=== PATIENT | male | born 1965 | race Caucasian/White ===

== ENCOUNTER 2023-03-10 10:59 | Emergency (ER) | payer OTHER, SELFPAY ==
[2023-03-10 10:59] VITALS: BP 150/84; PULSE 97; RESP 18; TEMP 36; O2SAT 100; BMI 45.7
--- NOTE | 2023-03-10 11:19 | CT_ITS ---
STUDY: CT ABDOMEN AND PELVIS WITH CONTRAST REASON FOR EXAM: Male, 57 years old. Perianal pain, possible abscess RADIATION DOSAGE (If Supplied By Facility): CTDIvol = ( 29.89 ) mGy, DLP = ( 1597.82 ) mGycm TECHNIQUE: Transaxial images were obtained from the dome of the diaphragm to the symphysis pubis without oral contrast. IV 100mL Isovue-300 was administered. Sagittal and coronal images were reconstructed. Individualized dose optimization techniques were used for this CT. COMPARISON: None. FINDINGS: The visualized lung bases are unremarkable. The visualized portions of the heart are within normal limits. Liver is unremarkable aside from a subcentimeter cyst in the left lobe. Normal gallbladder and extrahepatic biliary system. Normal spleen. Normal pancreas. Normal bilateral adrenal glands. Normal right kidney. Normal left kidney. Normal visualized stomach. Normal small intestine. Scattered colonic diverticulosis, no CT evidence of acute diverticulitis. The appendix is visualized and appears normal. Appendix seen on coronal recon images 92 through 96 Normal abdominal aorta. Normal inferior vena cava. Normal retroperitoneum. Normal urinary bladder. There is a low-density fluid collection in the perirectal region best seen on axial image 126 and coronal reconstructed image 34 consistent with abscess. It measures 3.33 x 1.85 x 2.31 cm. No evidence of an air-fluid level there is a minimal amount of associated induration of the perirectal fat. There is a small umbilical hernia containing fat. Bony structures are unremarkable aside from degenerative changes at L5/S1 with partially calcified disc bulge. CT/Abdomen/Pelvis W IV Cont ONLY IMPRESSION: There is a 3.33 x 1.85 x 2.31 centimeter low-density fluid collection in the perirectal region consistent with abscess. Surgical consultation recommended. There is a minimal amount of associated induration of the perirectal fat. No suspicious solid organ abnormality, simple hepatic cyst, no specific follow-up needed Diverticulosis, no CT evidence of acute diverticulitis Electronically Signed: Chris Swift MD at 12:28 EDT ,
--- NOTE | 2023-03-10 11:24 | EDS_ITS ---
HPI <TYLOR Mendoza - Last Filed: 03/10/23 15:51> History of Present Illness Chief Complaint: Other, Pain/Inj Narrative Narrative: Patient presenting with progressively worsening rectal pain that he has had since Saturday. He describes the pain as sharp and shooting. On Saturday he saw his PCP who diagnosed him with a hemorrhoid and put him on Preparation H. He has been using that, sitz bath's, rectal suppositories, stool softeners with no relief. He states that the pain has become, unbearable and was told to come in today by his PCP. He denies any fever, chills, abdominal pain, constipation, rectal bleeding/blood in the stool, nausea, and vomiting. PMH includes hypertension, hyperlipidemia. PFSH <TYLOR Mendoza - Last Filed: 03/10/23 15:51> PFSH Medical History (Updated 03/10/23 @ 13:12 by TYLOR Mendoza) Coronary artery disease High cholesterol Hypertension Home Medications ciprofloxacin HCl 500 mg tablet 500 mg PO BID 10 days #20 TABLETS 03/10/23 [Rx Last Taken Unknown] metronidazole 500 mg tablet 500 mg PO Q8H 10 days #30 tabs 03/10/23 [Rx Last Taken Unknown] oxycodone-acetaminophen 5 mg-325 mg tablet (Percocet) 1 tab PO Q8H PRN pain 4 days #10 tabs 03/10/23 [Rx Last Taken Unknown] Allergy/AdvReac Type Severity Reaction Status Date / Time No Known Allergies Allergy Verified 03/10/23 11:01 Social History Smoking Status: Never smoker ROS <TYLOR Mendoza - Last Filed: 03/10/23 15:51> ROS ED Constitutional Constitutional ED: Denies chills, fever(s) or sweats Cardiovascular Cardiovascular: Denies chest pain Respiratory/Chest Respiratory/Chest: Denies cough or dyspnea Gastrointestinal Gastrointestinal: Denies abdominal pain, constipation, melena, nausea or vomiting Musculoskeletal Musculoskeletal: Denies arthralgias or myalgias Integumentary Denies abscess, Abrasions or rash Neurologic Neurologic: Denies weakness EXAM <TYLOR Mendoza - Last Filed: 03/10/23 15:51> Physical Exam Const Vital Signs: 03/10/23 10:59 03/10/23 11:58 03/10/23 14:31 Temperature 96.8 F L Temperature Source Temporal Pulse Rate 97 93 73 Respiratory Rate 18 18 16 Blood Pressure 150/84 H 148/82 H 138/90 H Blood Pressure Mean 106 104 Pulse Ox 100 99 98 Oxygen Delivery Method Room Air Room Air Positive well nourished, well developed and no apparent distress General Appearance ED: well developed HEENT Reports normocephalic and head/scalp atraumatic Mouth ED: Yes moist mucous membranes normal Eyes PERRL and EOMs intact bilaterally Neck full ROM and supple Chest Wall inspection of chest normal Resp normal respiratory effort and clear to auscultation bilaterally Cardio regular rate and regular rhythm GI soft to palpation, non-tender, non-distended and no masses GI Narrative: Patient experienced a lot of pain during rectal examination, there is an area of erythema and fullness to the left gluteal cleft near the anus. There are no anal fissures noted or external hemorrhoids noted. I did palpate an internal hemorrhoid. No gross bleeding. Back/Spine normal ROM and normal to inspection Extremity normal to inspection and full ROM Neuro oriented x3, CN's II-XII intact bilaterally, moves all extremities, no focal motor deficits and no sensory deficits noted Sensorium / Orientation: awake and alert Psych mental status grossly normal and thought process normal Skin no rashes or lesions noted and no wounds <Jayant Quevedo MD - Last Filed: 03/10/23 16:06> Physical Exam Const Vital Signs: 03/10/23 10:59 03/10/23 11:58 03/10/23 14:31 Temperature 96.8 F L Temperature Source Temporal Pulse Rate 97 93 73 Respiratory Rate 18 18 16 Blood Pressure 150/84 H 148/82 H 138/90 H Blood Pressure Mean 106 104 Pulse Ox 100 99 98 Oxygen Delivery Method Room Air Room Air MDM <TYLOR Mendoza - Last Filed: 03/10/23 15:51> [facility] Narrative Medical decision making narrative: Patient presenting due to rectal pain that he has had since Saturday. His PCP saw him Saturday and diagnosed him with a internal hemorrhoid. He has been using Preparation H, sitz bath's, suppositories, stool softeners without any relief. During rectal examination patient was in a lot of pain. I did feel an area of fullness to the left gluteal cleft near the anus, there is some erythema to the area and patient experienced a lot of tenderness with palpation to that area. Because of this, I do have concerns for perianal abscess. CT scan of the abdomen and pelvis will be obtained to rule out, labs will be obtained to rule out leukocytosis, anemia, electrolyte abnormality. Labs show a slight anemia. Patient has been given Toradol for pain. The scan did show a low-density fluid collection in the perirectal region consistent with abscess. Dr. Schrader has been consulted and performed an I&D of this abscess. A wound culture has been obtained. Patient was given additional pain control, IV Zosyn. He has been prescribed Flagyl and ciprofloxacin for home as well as a few Percocet for pain. He is to follow-up with Dr. Schrader in 1 week and return for any worsening of his symptoms. On reexamination he is feeling much better and will be discharged home in stable condition. He is comfortable with plan. Lab Data Attestation: I reviewed the patient's lab results. Lab results narrative: H&H 12.3 and 38.2 Labs: Laboratory Results - last 24 hr 03/10/23 03/10/23 11:27 11:27 WBC 7.1 RBC 4.30 L Hgb 12.3 L Hct 38.2 L MCV 88.8 MCH 28.6 MCHC 32.2 RDW Std Deviation 46.2 H RDW Coeff of Joan 14.2 Plt Count 254 MPV 9.0 Immature Gran % (Auto) 0.400 Neut % (Auto) 47.4 Lymph % (Auto) 41.4 H Forrest % (Auto) 10.1 H Eos % (Auto) 0.3 Baso % (Auto) 0.4 Absolute Neuts (auto) 3.4 Absolute Lymphs (auto) 2.94 Nucleated RBC % 0 Differential Comment SCANNED Reactive Lymphocytes 1+ Sodium 138 Potassium 4.2 Chloride 106 Carbon Dioxide 27.0 Anion Gap 5 BUN 14 Creatinine 0.94 Estim Creat Clear Calc 79.18 Est GFR (MDRD) Af Amer 106 Est GFR (MDRD) Non-Af 88 BUN/Creatinine Ratio 14.8 Glucose 113 H Calcium 9.1 Radiography Diagnostic Testing: Clinical Impression(s) from Imaging Studies Abdomen/Pelvis CT 03/10/23 11:19 IMPRESSION: There is a 3.33 x 1.85 x 2.31 centimeter low-density fluid collection in the perirectal region consistent with abscess. Surgical consultation recommended. There is a minimal amount of associated induration of the perirectal fat. No suspicious solid organ abnormality, simple hepatic cyst, no specific follow-up needed Diverticulosis, no CT evidence of acute diverticulitis Electronically Signed: Chris Swift MD at 12:28 EDT , CT also reviewed and interpreted by attending ED physician. In agreement with radiology. <Jayant Quevedo MD - Last Filed: 03/10/23 16:06> [facility] Narrative Medical decision making narrative: Patient presenting due to rectal pain that he has had since Saturday. His PCP saw him Saturday and diagnosed him with a internal hemorrhoid. He has been using Preparation H, sitz bath's, suppositories, stool softeners without any relief. During rectal examination patient was in a lot of pain. I did feel an area of fullness to the left gluteal cleft near the anus, there is some erythema to the area and patient experienced a lot of tenderness with palpation to that area. Because of this, I do have concerns for perianal abscess. CT scan of the abdomen and pelvis will be obtained to rule out, labs will be obtained to rule out leukocytosis, anemia, electrolyte abnormality. Labs show a slight anemia. Patient has been given Toradol for pain. The scan did show a low-density fluid collection in the perirectal region consistent with abscess. Dr. Schrader has been consulted and performed an I&D of this abscess. A wound culture has been obtained. Patient was given additional pain control, IV Zosyn. He has been prescribed Flagyl and ciprofloxacin for home as well as a few Percocet for pain. He is to follow-up with Dr. Schrader in 1 week and return for any worsening of his symptoms. On reexamination he is feeling much better and will be discharged home in stable condition. He is comfortable with plan. I have personally performed a face to face assessment of the patient and have reviewed the JOSEPH Note. I performed a substantive portion of the visit including all aspects of the following. My garcia findings include: History is rectal pain, pain with defecation, diagnosed with hemorrhoid by PCP a few days ago. Exam is afebrile. Vital signs noted. Nontoxic-appearing. Positive tenderness to palpation left perirectal area with mild fluctuance. Medical Decision Making: Obtain laboratory work, obtain CT imaging. Radiology report reviewed which shows perirectal abscess and suggest surgical consultation. Patient discussed with Dr. Schrader with general surgery. He performed incision and drainage at the bedside and would like the patient to have a dose of Zosyn prior to discharge. He will be discharged with antibiotics and analgesics, remove packing in 2 days, and follow-up with general surgery in approximately 1 week. Discharged. Other additions or changes: [None] History & Record Review Discussion w/independent historian: Patient Additional record(s) reviewed:: Prior ED visit Lab Data Labs: Laboratory Results - last 24 hr 03/10/23 03/10/23 11:27 11:27 WBC 7.1 RBC 4.30 L Hgb 12.3 L Hct 38.2 L MCV 88.8 MCH 28.6 MCHC 32.2 RDW Std Deviation 46.2 H RDW Coeff of Joan 14.2 Plt Count 254 MPV 9.0 Immature Gran % (Auto) 0.400 Neut % (Auto) 47.4 Lymph % (Auto) 41.4 H Forrest % (Auto) 10.1 H Eos % (Auto) 0.3 Baso % (Auto) 0.4 Absolute Neuts (auto) 3.4 Absolute Lymphs (auto) 2.94 Nucleated RBC % 0 Differential Comment SCANNED Reactive Lymphocytes 1+ Sodium 138 Potassium 4.2 Chloride 106 Carbon Dioxide 27.0 Anion Gap 5 BUN 14 Creatinine 0.94 Estim Creat Clear Calc 79.18 Est GFR (MDRD) Af Amer 106 Est GFR (MDRD) Non-Af 88 BUN/Creatinine Ratio 14.8 Glucose 113 H Calcium 9.1 Radiography Diagnostic Testing: Clinical Impression(s) from Imaging Studies Abdomen/Pelvis CT 03/10/23 11:19 IMPRESSION: There is a 3.33 x 1.85 x 2.31 centimeter low-density fluid collection in the perirectal region consistent with abscess. Surgical consultation recommended. There is a minimal amount of associated induration of the perirectal fat. No suspicious solid organ abnormality, simple hepatic cyst, no specific follow-up needed Diverticulosis, no CT evidence of acute diverticulitis Electronically Signed: Chris Swift MD at 12:28 EDT , Discharge Plan Triage Chief Complaint: Other, Pain/Inj ED Midlevel Provider: Karen Hernandes ED Provider: Jayant Quevedo Dx/Rx/DC Orders Clinical Impression: Perianal abscess Instructions: ED ABSCESS Rubi-Anal IandD Prescriptions: New metronidazole 500 mg tablet 500 mg PO Q8H 10 Days Qty: 30 0RF ciprofloxacin HCl 500 mg tablet 500 mg PO BID 10 Days Qty: 20 0RF oxycodone-acetaminophen [Percocet] 5-325 mg tablet 1 tab PO Q8H PRN (Reason: pain) 4 Days Qty: 10 0RF Primary Care Provider: Patricia Madrigal Referrals: Rey Schrader MD [Med Staff - Active Staff] - 1 Week Patricia Madrigal MD [Primary Care Provider] - Activity Restrictions/Additional Instructions: Please follow-up with Dr. Schrader in 1 week, return for any worsening of your symptoms. Take antibiotics as prescribed. You can take the packing out in 2 days. Disposition Disposition: Home, Self Care Discharge Date/Time: 03/10/23 14:32
[2023-03-10] MEDS: Ketorolac 15 MG/ML Vial IV (11:31)
[2023-03-10 11:33] LABS: Absolute Lymphocyte Count 2.94 X10^3/uL (0.83-4.51); Absolute Neutrophil Count 3.4 X10^3/uL (2.0-7.7); Basophil# 0.03 X10^3/uL; Basophil% 0.4 % (0-1); Eosinophil# 0.02 X10^3/uL; Eosinophils% 0.3 % (0-5); Hematocrit 38.2 % (40-54); Hemoglobin 12.3 g/dL (13.0-16.5); Lymphocyte # 2.94 X10^3/ul (0.83-4.51); Lymphocyte % 41.4 % (19-41); Mean Corp Hgb Conc 32.2 g/dL (32-36); Mean Corpuscular Hgb 28.6 pg (27.0-32.0); Mean Corpuscular Volume 88.8 fL (80-94); Monocyte# 0.72 X10^3/uL; Monocyte% 10.1 % (0-10); NRBC Flagged by Analyzer 0 % (0-5); Neutrophil # 3.37 X10^3/uL (2.7-7.7); Neutrophil % 47.4 % (47-70); POSITIVE MORPHOLOGY YES; Platelet Count 254 K/mm3 (150-450); RBC Distribution Width CV 14.2 % (11.6-14.6); RBC Distribution Width SD 46.2 fl (35.1-43.9); White Blood Count 7.1 K/mm3 (4.4-11.0)
[2023-03-10 11:48] LABS: Anion Gap 5 (5-15); BUN 14 mg/dL (7-18); BUN/Creat Ratio 14.8 RATIO (10-20); Calcium,Total 9.1 mg/dL (8.5-10.1); Chloride 106 mmol/L (98-107); Creatinine, Serum 0.94 mg/dL (0.70-1.30); EST Glomerular Filtration Rate 88 mL/min (>60); Est Glom Filt Rate - Afr Amer 106 mL/min (>60); Estimated Creatinine Clearance 79.18 ml/min; Glucose 113 mg/dL (74-106); Potassium 4.2 mmol/L (3.5-5.1); Sodium Level 138 mmol/L (136-145)
[2023-03-10 11:54] LABS: Differential Indicated SCAN CRITERIA MET
[2023-03-10] MEDS: Ondansetron 4 MG/2 ML Vial IV (11:55)
[2023-03-10] MEDS: Morphine 4 MG/ML Syringe IV ×2 (11:56→12:45)
[2023-03-10 11:58] VITALS: BP 148/82; PULSE 93; RESP 18; O2SAT 99
[2023-03-10 12:40] LABS: Differential Comment SCANNED; Reactive Lymphocyte 1+
[2023-03-10] MEDS: Lidocaine 1% (20 ml mdv) 20 ML Vial 10 ML INFILT (12:45)
--- NOTE | 2023-03-10 13:09 | EX.PCM.CON.S ---
Assessment & Plan Assessment/Plan (1) Perianal abscess: PLAN: Patient has a perianal abscess on the left side which was imaged on CT scan. I discussed with him drainage and packing of this area and going home on antibiotics. I discussed the risks of bleeding and infection with drainage. Patient had drainage of the fluid collection in the ER by myself. The incision was packed with quarter inch iodoform gauze and the patient will be given a dose of Zosyn here in the ER and started on Cipro Flagyl and discharged home and follow-up with me in 1 week. He was instructed to follow-up with me or the ER if anything worsens instead of improving. Cultures were sent as well. Rey Schrader MD Pager: [facility] [address] [place] [address], [address] [place] [address] Office: HPI Consult Data Date of Consult: 03/10/23 HPI Narrative HPI Narrative: MARCOS QUINONEZ, is a 57 M who presents with rectal pain has been going on for several days. He says been especially worse for the last 3 days. It is worse on the left side. He says he is experiencing shooting pains. No nausea or vomiting. Denies fevers or chills. He has not had any drainage from the area. [facility] Medical History (Updated 03/10/23 @ 13:03 by TYLOR Mendoza) Coronary artery disease High cholesterol Hypertension Home Medications ciprofloxacin HCl 500 mg tablet 500 mg PO BID 10 days #20 TABLETS 03/10/23 [Rx Last Taken Unknown] metronidazole 500 mg tablet 500 mg PO Q8H 10 days #30 tabs 03/10/23 [Rx Last Taken Unknown] oxycodone-acetaminophen 5 mg-325 mg tablet (Percocet) 1 tab PO Q8H PRN pain 4 days #10 tabs 03/10/23 [Rx Last Taken Unknown] Allergy/AdvReac Type Severity Reaction Status Date / Time No Known Allergies Allergy Verified 03/10/23 11:01 Social History Smoking Status: Never smoker ROS Constitutional Constitutional: Denies anorexia, chills or fatigue Eyes Eyes: Denies blurry vision ENT HEENT: Denies abnormal hearing Respiratory/Chest Respiratory/Chest: Denies cough Gastrointestinal Gastrointestinal: Denies abdominal pain Genitourinary Genitourinary: Denies change in urinary stream Musculoskeletal Musculoskeletal: Denies abnormal gait Psychiatric Psychiatric: Denies depression Endocrine Endocrinology: Denies flushing Physical Exam Const alert and oriented x3 HEENT normocephalic Eyes PERRL Resp normal respiratory effort Cardio Rate: regular rate Rhythm: regular rhythm GI soft to palpation, non-tender and non-distended GI Narrative: Patient has a left perirectal abscess which is fluctuant. Neuro CN's II-XII intact bilaterally Lab / Micro Data Result Diagrams: 03/10/23 11:27 03/10/23 11:27 Labs: Laboratory Results - last 24 hr 03/10/23 11:27: WBC 7.1, RBC 4.30 L, Hgb 12.3 L, Hct 38.2 L, MCV 88.8, MCH 28.6, MCHC 32.2, RDW Std Deviation 46.2 H, RDW Coeff of Joan 14.2, Plt Count 254, MPV 9.0, Immature Gran % (Auto) 0.400, Neut % (Auto) 47.4, Lymph % (Auto) 41.4 H, [place] % (Auto) 10.1 H, Eos % (Auto) 0.3, Baso % (Auto) 0.4, Absolute Neuts (auto) 3.4, Absolute Lymphs (auto) 2.94, Nucleated RBC % 0, Differential Comment SCANNED, Reactive Lymphocytes 1+ 03/10/23 11:27: Sodium 138, Potassium 4.2, Chloride 106, Carbon Dioxide 27.0, Anion Gap 5, BUN 14, Creatinine 0.94, Estim Creat Clear Calc 79.18, Est GFR (MDRD) Af Amer 106, Est GFR (MDRD) Non-Af 88, BUN/Creatinine Ratio 14.8, Glucose 113 H, Calcium 9.1 Radiology Impression Abdomen/Pelvis CT 03/10/23 11:19 IMPRESSION: There is a 3.33 x 1.85 x 2.31 centimeter low-density fluid collection in the perirectal region consistent with abscess. Surgical consultation recommended. There is a minimal amount of associated induration of the perirectal fat. No suspicious solid organ abnormality, simple hepatic cyst, no specific follow-up needed Diverticulosis, no CT evidence of acute diverticulitis Electronically Signed: Chris Swift MD at 12:28 EDT ,
--- NOTE | 2023-03-10 13:11 | PCM.OPRPT ---
Report of Operation Date of Procedure: 03/10/23 Pre-Operative Diagnosis: Left perianal abscess Post-Operative Diagnosis: Same Surgery/Procedure Performed:: Incision and drainage of left perianal abscess with packing Description of Procedure: The left perianal area was prepped with Betadine and then injected with local anesthetic. A small T-shaped incision was made with a scalpel and forceps were used to deepen this to the abscess cavity which was entered and then there was copious drainage of purulent material. The fluid was cultured and then the abscess cavity was irrigated with local anesthetic and drained. The abscess cavity was then packed with quarter inch iodoform gauze and dressings were applied. Patient tolerated the procedure well.
[2023-03-10 14:31] VITALS: BP 138/90; PULSE 73; RESP 16; O2SAT 98
== END 2023-03-10 14:32 | disposition home or self-care (01) ==
PROVIDERS: Physician Assistant; Emergency Provider Emergency Medicine; PCP Internal Medicine; Visit Provider Emergency Medicine
DX: K61.0 Anal abscess (principal); K64.8 Other hemorrhoids; E78.00 Pure hypercholesterolemia, unspecified; I10 Essential (primary) hypertension; I25.10 Atherosclerotic heart disease of native coronary artery without angina pectoris; Z79.899 Other long term (current) drug therapy
CPT/HCPCS: 46050; 74177; 80048; 85025; 87070; 87077; 87186; 87205; 96365; 96375; 96376; 99283; Q9967; A4216; J2405

== ENCOUNTER 2023-05-06 08:52 | Day surgery (SDC) | payer OTHER, SELFPAY ==
[2023-05-06] VITALS (8 sets, daily range): BP systolic 105–129; BP diastolic 55–82; PULSE 69–80; RESP 16–20; TEMP 36.2–36.7; O2SAT 93–100; BMI 44.7
--- NOTE | 2023-05-06 09:38 | HP.PCM_ITS ---
History and Physical Date of Admission: 05/06/23 Intake Vital Signs 03/10/2310:59 05/02/2314:04 Height 5 ft 6 in 5 ft 6 in Weight: 283 lb BMI 45.6 BP 123/80 H Blood Pressure Location Rt brachial Position Sitting Respiration 18 Intake Visit Reasons: PERIANAL ABSCESS F/U Chief Complaint: perianal abscess Appliance Service Representative Required: No Is patient in pain?: No Allergies No Known Allergies Allergy (Verified 05/02/23 13:36) Medications oxycodone-acetaminophen 5 mg-325 mg tablet (Percocet) 1 tab PO Q8H PRN pain 4 days #10 tabs 03/10/23 [Rx Confirmed 03/20/23] ciprofloxacin HCl 500 mg tablet (Cipro) 500 mg PO BID 10 days #20 tabs 05/02/23 [Rx Confirmed 05/02/23] metronidazole 500 mg tablet 500 mg PO Q8H 10 days #30 tabs 05/02/23 [Rx Con firmed 05/02/23] PFSH Medical History Coronary artery disease High cholesterol Hypertension Social History Smoking Status: Never smoker HPI HPI HPI: Patient is a 57-year-old male here with recurrent perirectal abscess. Patient has been having some purulent drainage from his left perianal area. He reports that since it is draining the pain is improved. ROS General General: No weight change, appetite, fatigue, colon cancer, breast cancer or weakness HEENT HEENT: No difficulty swallowing, eye injury, eye surgery, swollen glands or hoarseness Endo Endocrine: No thyroid disease, diabetes mellitus, thyroid cancer, Hair loss, heat intolerance or cold intolerance Skin Skin: No rash or changing moles Breast Breast: No left breast lump, right breast lump, nipple discharge, breast pain, abnormal mammogram, abnormal US or breast enlargement Musc Musculoskeletal: No back problems, arthritis, rheumatoid arthritis, gout or joint pain Cardio Cardiovascular: No murmur, pacemaker, heart disease, atrial fibrillation, high blood pressure, heart attack, heart stent, palpitations, shortness of breat with exertion or chest pain Psych Psychiatric: No depression, anxiety or hearing voices Resp Respiratory: No shortness of breath, No sleep apnea, No cough, No COPD, No asthma, No emphysema and No wheezing Gastro Gastrointestinal: No abdominal pain, No nausea or vomiting, No diarrhea, No constipation, No blood in stool, No acid reflux, No hemorrhoids, No ulcers, No gallbladder problem and No black,tarry stools Arvin Hematologic: No blood thinners, No blood disorders, No bleeding, No anemia and No blood clots Neuro Neurologic: No system reviewed and no additional complaints, except as documented, No as per HPI, No abnormal gait, No abnormal hearing, No abnormal movements, No abnormal speech, No behavioral changes, No burning sensations, No confusion, No convulsions, No disequilibrium, No dizziness, No localized weakness, No frequent falls, No headache(s), No lack of coordination, No loss of vision, No memory loss, No numbness, No other visual disturbances, No radicular pain, No restless legs, No sensory deficit, No syncope, No tingling, No tremor(s), No weakness and No other Exam Const General: cooperative Orientation: alert and oriented x3 HENMT Head: normal to inspection Neck Neck: normal visual inspection and full ROM Chest Chest palpation & inspection: normal inspection of the chest Resp Effort & Inspection: normal respiratory effort Auscultation: clear to auscultation bilaterally Cardio Rate: regular rate Rhythm: regular rhythm GI Inspection: non-distended Palpation: soft and nontender Other: Left perianal pain and purulent drainage Skin General: no rashes or lesions noted Neuro General: patient alert and patient oriented x3 Extrem General: full ROM Psych Appearance: grossly normal Mental Status: mental status grossly normal Assessment and Plan Assessment and Plan (1) Perianal abscess: Status: Acute Plan: The patient has recurrent abscess of the left perianal area. At this point I recommend antibiotics and next week I will take him for exam under anesthesia with possible seton placement if there is a fistula. I discussed seton placement with the patient and the risks of surgery including but not limited to bleeding, infection, need for further surgery. Rey Schrader MD Pager: [facility] [address] [place] [address], [address] [place] [address] Office: I have examined the patient and the H&P has been reviewed. There are no clinical changes since date of exam.
[2023-05-06] MEDS: Lactated Ringers 1,000 ML 15 ML IV (09:44)
[2023-05-06] MEDS: Bupivacaine Mpf 0.5% 30 ML VIAL (10:00)
[2023-05-06] MEDS: Lubricating Jelly 60 GM Tube 30 GM (10:48)
[2023-05-06] MEDS: Dibucaine 30 GM Tube 1 APPLIC (11:03)
--- NOTE | 2023-05-06 11:20 | OP.PCM_ITS ---
Report of Operation Date of Procedure: 05/06/23
--- NOTE | 2023-05-06 11:20 | PCM.OPRPT ---
Report of Operation Date of Procedure: 05/06/23 Pre-Operative Diagnosis: Recurrent perianal abscess Post-Operative Diagnosis: Recurrent perianal abscess with fistula tract Surgery/Procedure Performed:: Exam under anesthesia with drainage of abscess and placement of seton suture Type of Anesthesia: General/Regional Estimated Blood Loss (mL): 5 Description of Procedure: Patient was brought back to the operating room and general anesthesia was induced. The patient was placed in prone jackknife position. The perianal area was prepped and draped. The site of the prior incision was injected with local anesthetic and enlarged using a scalpel. The small retractor was placed into the anus and the posterior region was inspected. There appeared to be a fistula tract draining purulent material. The probe was used to find a connection between the abscess cavity and the fistula. A vessel loop was placed through the fistula tract. There was tied together. The abscess was irrigated and suctioned dry. A small 3-0 Vicryl suture was used to reapproximate the incision partially. The area was washed and cleaned and the patient was awoken and taken to PACU in stable condition. Patient tolerated the procedure well. Admit VTE Documentation VTE Mechan Device Prophylaxis: SCD's
--- NOTE | 2023-05-06 11:32 | DCINST_ITS ---
Discharge Instructions Diet Discharge Diet: Light diet - advance as tolerated Activity Discharge Activity: Return to Normal Activity, May Not Drive (while you are taking narcotic pain medications. Do not drive, work with heavy equipment or sign legal documents for 24 hours after your surgery.) and May Shower May resume sexual activity in: No Restrictions Additional Activity Instructions:: Be aware that pain medications may cause nausea. You should typically eat light foods as you take your pain medications. Pain medications may also cause constipation. If you have difficulty with this please discuss with your doctor. Dressing / Incision Call your doctor if your incision/area has: Continuous Slow Oozing, Sudden Increased Bleeding, Increased Pain/ Swelling, Increased Redness, Foul Smelling Discharge and Swelling at the incision site Call your doctor if you observe: Fever of 101 or Higher and Uncontrolled pain Change Dressing in: 1 day Cleanse incision/area with: Soap & Water Additional Dressing/Incision Instructions:: Leave the operative bandage on for [address] dibucaine ointment on the perianal area as needed. Sitz baths twice daily and after bowel movements. Follow Up Care Please Follow Up With: Rey Schrader MD When: Please call to schedule 2 week follow up appointment. [phone] Test Results: Test results from this visit will be discussed in further detail at your follow- up appointment, if applicable. Discharge Plan Admission Attending Provider: Rey Schrader Primary Care Provider: Patricia Madrigal Discharge Orders/Prescriptions Prescriptions: New oxycodone-acetaminophen [Percocet] 5-325 mg tablet 1 tab PO Q4H PRN (Reason: pain) 7 Days Qty: 30 0RF No Action metronidazole 500 mg tablet 500 mg PO Q8H 10 Days Qty: 30 0RF ciprofloxacin HCl [Cipro] 500 mg tablet 500 mg PO BID 10 Days Qty: 20 0RF oxycodone-acetaminophen [Percocet] 5-325 mg tablet 1 tab PO Q8H PRN (Reason: pain) 4 Days Qty: 10 0RF lisinopril 5 mg tablet 5 mg PO DAILY Patient Comments: TAKE ONE TABLET BY MOUTH DAILY rosuvastatin 20 mg tablet 20 mg PO QHS Patient Comments: TAKE ONE TABLET BY MOUTH EVERY EVENING aspirin [Adult Aspirin Regimen] 81 mg tablet,delayed release (DR/EC) 81 mg PO DAILY alprazolam 0.25 mg tablet 0.25 mg PO DAILY PRN Patient Comments: TAKE ONE TABLET BY MOUTH TWICE DAILY NEEDED [id number] 50-300-40 mg capsule 1 cap PO Q6H PRN (Reason: headache) Patient Comments: TAKE ONE CAPSULE BY MOUTH EVERY 6 HOURS NEEDED FOR HEADACHE coenzyme Q10 200 mg capsule 300 mg PO QHS Patient Comments: TAKE ONE CAPSULE BY MOUTH DAILY Digestive Advantage Prob Gummy 250 million cell tablet,chewable 2 cell PO DAILY Referrals / Follow Up: Patricia Madrigal MD [Primary Care Provider] - Disposition Disposition (needs filled in before D/C Order can be placed): Home, Self Care
--- NOTE | 2023-05-06 12:15 | SUR.PHASEI ---
INCONTINENT LOOSE STOOL IN PACU, ALSO USED BEDPAN. PATIENT ALSO HAD TWO EPISODES STOOL IN O.R. PRIOR TO PACU TXR. PATIENT STATES HE STILL HAS THE URGE TO HAVE A BM.
== END 2023-05-06 13:32 | disposition home or self-care (01) ==
LOC: SDC 08:56 → AC 08:56
PROVIDERS: PCP Internal Medicine; Referring Provider Surgery; Visit Provider Surgery
PROC: (CPT 46020; principal; 2023-05-06 10:45)
DX: K61.0 Anal abscess (principal); I25.10 Atherosclerotic heart disease of native coronary artery without angina pectoris; I10 Essential (primary) hypertension; E78.00 Pure hypercholesterolemia, unspecified; Z79.82 Long term (current) use of aspirin; Z79.899 Other long term (current) drug therapy
CPT/HCPCS: 46020; 00902; J2405